=== PATIENT | male | born 1955 | race Caucasian/White ===

== ENCOUNTER 2023-08-27 21:56 | Inpatient (IN) | payer OTHER ==
[2023-08-27] MEDS ORDERED: HYDROCODONE/APAP 10/325 TAB ONE (22:28)
[2023-08-27] MEDS ORDERED: IBUPROFEN 400 MG TAB ONE (22:28)
[2023-08-27] MEDS ORDERED: ONDANSETRON 4 MG (ODT) TAB ONE (22:28)
[2023-08-27 22:53] LABS: Absolute Lymphocytes (CBC) 2.8 K/uL (0.7-4.9); Hematocrit 44.8 % (39.6-49.0); Lymphocytes % 23.5 % (15.3-44.8); MCV 92.8 fL (80-100); MPV 7.8 fL (7.6-11.3); Platelets 215 thou/uL (152-406); RBC Red Blood Cell Count 4.82 M/uL (4.33-5.43)
[2023-08-27 23:02] LABS: Protime INR 1.13
[2023-08-27 23:19] LABS: Albumin 3.5 g/dL (3.4-5.0); Bilirubin Direct 0.3 mg/dL (0-0.2); Bilirubin Indirect, Calculated 0.9 mg/dL (0.2-0.8); Bilirubin Total 1.2 mg/dL (0.2-1.0); Protein, Total 7.7 g/dL (6.4-8.2)
[2023-08-28] MEDS ORDERED: ENOXAPARIN 100 MG/ML SYR SQ ONE ×2 (00:38→08:27)
--- NOTE | 2023-08-28 00:47 | ER ---
Nurse's Notes [facility] Name: Jose De Jesus Ornelas Age: 68 yrs Sex: Male : 1955 Arrival Date: 08/27/2023 Time: 21:56 Bed 8 Private MD: Diagnosis: Right lower extremity deep venous thrombosis, right common femoral vein DVT.;DVT right common femoral, superficial femoral, popliteal, posterior tibial and peroneal veins;Bilateral pulmonary emboli Presentation: 08/27 22:29 Chief complaint: Patient states: Pt c/o right lower leg pain x 2 weeks that got swollen tl4 and significantly more painful today. Coronavirus screen: Vaccine status: Patient reports receiving the 2nd dose of the covid vaccine. Ebola Screen: No symptoms or risks identified at this time. Initial Sepsis Screen: Does the patient meet any 2 criteria? No. Patient's initial sepsis screen is negative. Does the patient have a suspected source of infection? No. Patient's initial sepsis screen is negative. Risk Assessment: Do you want to hurt yourself or someone else? Patient reports no desire to harm self or others. Onset of symptoms was August 27, 2023. 22:29 Method Of Arrival: Wheelchair tl4 22:29 Acuity: HELEN 3 tl4 Triage Assessment: 22:32 General: Appears uncomfortable, Behavior is calm, cooperative. Pain: Complains of pain tl4 in right leg. EENT: No deficits noted. No signs and/or symptoms were reported regarding the EENT system. Neuro: No deficits noted. Cardiovascular: No deficits noted. Respiratory: No deficits noted. GI: No deficits noted. No signs and/or symptoms were reported involving the gastrointestinal system. : No deficits noted. No signs and/or symptoms were reported regarding the genitourinary system. Derm: No deficits noted. No signs and/or symptoms reported regarding the dermatologic system. Historical: - Allergies: 22:31 No Known Allergies; tl4 - PSHx: 22:31 corneal transplant; tl4 - Immunization history:: Adult Immunizations unknown. - Social history:: Smoking status: Patient denies any tobacco usage or history of. - Family history:: not pertinent. Screenin:46 [facility] ED Fall Risk Assessment (Adult) History of falling in the last 3 months, tm6 including since admission No falls in past 3 months (0 pts). Abuse screen: Denies threats or abuse. Denies injuries from another. Nutritional screening: No deficits noted. Tuberculosis screening: No symptoms or risk factors identified. Assessment: 22:46 General: Appears uncomfortable. Pain: Complains of pain in right leg Pain currently is tm6 9 out of 10 on a pain scale. Quality of pain is described as sharp, Pain began 4 hours ago. Neuro: Level of Consciousness is awake, alert, obeys commands, Oriented to person, place, time, situation. Cardiovascular: Capillary refill < 3 seconds Patient's skin is warm and dry. Respiratory: Airway is patent Respiratory effort is even, unlabored, Respiratory pattern is regular, symmetrical. GI: Abdomen is round non-distended. : No signs and/or symptoms were reported regarding the genitourinary system. EENT: No signs and/or symptoms were reported regarding the EENT system. Derm: No signs and/or symptoms reported regarding the dermatologic system. Musculoskeletal: No signs and/or symptoms reported regarding the musculoskeletal system. 23:25 Reassessment: Patient appears in no apparent distress at this time. Patient and/or jw7 family updated on plan of care and expected duration. Pain level reassessed. Patient is alert, oriented x 3, equal unlabored respirations, skin warm/dry/pink. Vital Signs: 22:29 BP 140 / 88; Pulse 84; Resp 18; Temp 98.1(O); Pulse Ox 98% on R/A; Weight 102.06 kg; tl4 Height 5 ft. 10 in. ; Pain 7/10; 23:23 BP 144 / 83; Pulse 91; Resp 21; Pulse Ox 95% on R/A; Pain 0/10; tm6 22:29 Body Mass Index 32.28 (102.06 kg, 177.8 cm) tl4 22:29 Pain Scale: Adult tl4 23:23 Pain Scale: Adult tm6 Christos Coma Score: 22:46 Eye Response: spontaneous(4). Motor Response: obeys commands(6). Verbal Response: tm6 oriented(5). Total: 15. ED Course: 22:05 Patient arrived in ED. gm2 22:11 Aly Joseph MD is Attending Physician. sp4 22:31 Triage completed. tl4 22:32 Arm band placed on Patient placed in an exam room, on a stretcher. tl4 22:33 Patient has correct armband on for positive identification. Placed in gown. Bed in low tl4 position. Call light in reach. Side rails up X 1. Adult w/ patient. Client placed on continuous cardiac and pulse oximetry monitoring. NIBP monitoring applied. electrician assistant on. Door closed. Moved to private room. Warm blanket given. Pillow given. 22:46 Provided Education on: plan of care. tm6 22:46 No provider procedures requiring assistance completed. Missed attempt(s): 20 gauge in tm6 right antecubital area. 22:47 Inserted saline lock: 20 gauge in left antecubital area, using aseptic technique. tm6 23:10 Extremity Venous Uni Ltd In Process Unspecified. EDMS 02 00:45 Saqib Obregon MD is Hospitalizing Provider. sp4 01:11 Extremity Venous Uni Ltd US In Process Unspecified. EDMS 06:48 Patient admitted, IV remains in place. tm6 Administered Medications: 08/27 22:45 Drug: [place] PO 10 mg-325 mg 1 tabs PO once Route: PO; tm6 22:45 Drug: Ondansetron PO 4 mg PO once Route: PO; tm6 22:46 Drug: Ibuprofen PO 800 mg PO once Route: PO; tm6 02 00:42 Drug: Enoxaparin Sub-Q 100 mg Sub-Q once Route: Sub-Q; Site: abdomen; jw7 Medication: 08/27 22:46 VIS not applicable for this client. tm6 Outcome: 08/28 00:47 Decision to Hospitalize by Provider. sp4 00:50 Admitted to ER Hold. Please see [facility] for further documentation. tm6 00:50 Condition: stable 00:50 Instructed on the need for admit, 16:41 Patient left the ED. kc6 Signatures: Dispatcher [employer] EDMI Michelle Boyle RN RN jw7 Janey Camacho RN RN kc6 Aly Joseph MD MD sp4 Deysi Spears [facility] Milton Lion RN RN tm6 LogBrandon keith tl4
--- NOTE | 2023-08-28 00:47 | EDPHYS ---
Physician Documentation [facility] Name: Jose De Jesus Ornelas Age: 68 yrs Sex: Male : 1955 Arrival Date: 08/27/2023 Time: 21:56 Bed 8 Private MD: ED Physician Aly Joseph HPI: 08/27 22:11 This 68 yrs old Male presents to ER via Unassigned with complaints of Leg sp4 Pain, Leg Swelling. 08/28 00:47 Patient is a very pleasant 68-year-old male presents to the emergency room with acute sp4 onset all right lower extremity pain, also right lower extremity swelling starting about noon today. Patient states there was no prior similar episodes. He denied recent surgery, denies recent airplane flight, denies recent extended car ride. Denied history of immobility. . Historical: - Allergies: 08/27 22:31 No Known Allergies; tl4 - PSHx: 22:31 corneal transplant; tl4 - Immunization history:: Adult Immunizations unknown. - Social history:: Smoking status: Patient denies any tobacco usage or history of. - Family history:: not pertinent. ROS: 08/28 00:47 Constitutional: Negative for fever, chills, and weight loss, positive right lower sp4 extremity pain and swelling All other systems are negative, Exam: 00:47 Constitutional: This is a well developed, well nourished patient who is awake, alert, sp4 and in no acute distress. Head/Face: Normocephalic, atraumatic. Eyes: Pupils equal round and reactive to light, extra-ocular motions intact. Lids and lashes normal. Conjunctiva and sclera are not injected. Cornea within normal limits. Periorbital areas with no swelling, redness, or edema. ENT: Nares patent. No nasal discharge, no septal abnormalities noted. Tympanic membranes are normal and external auditory canals are clear. Oropharynx with no redness, swelling, or masses, exudates, or evidence of obstruction, uvula midline. Mucous membranes moist. Neck: Trachea midline, no thyromegaly or masses palpated, and no cervical lymphadenopathy. Supple, full range of motion without nuchal rigidity, or vertebral point tenderness. Chest/axilla: Normal chest wall appearance and motion. Nontender with no deformity. No lesions are appreciated. Cardiovascular: Regular rate and rhythm with a normal S1 and S2. No gallops, murmurs, or rubs. Normal PMI, no JVD. No pulse deficits. Respiratory: Lungs have equal breath sounds bilaterally, clear to auscultation and percussion. No rales, rhonchi or wheezes noted. No increased work of breathing, no retractions or nasal flaring. Abdomen/GI: Soft, non-tender, with normal bowel sounds. No distension or tympany. No guarding or rebound. No evidence of tenderness throughout. Back: No spinal tenderness. No costovertebral tenderness. Skin: Warm, dry with normal turgor. Normal color with no rashes, no lesions, and no evidence of cellulitis. MS/ Extremity: Pulses equal, no cyanosis. Neurovascular intact. Full, normal range of motion. Positive right lower extremity swelling, tenderness, tense swelling of the right calf, Homans' sign Neuro: Awake and alert, GCS 15, oriented to person, place, time, and situation. Cranial nerves II-XII grossly intact. Motor strength 5/5 in all extremities. Sensory grossly intact. Psych: Awake, alert, with orientation to person, place and time. Behavior, mood, and affect are within normal limits Vital Signs: 08/27 22:29 BP 140 / 88; Pulse 84; Resp 18; Temp 98.1(O); Pulse Ox 98% on R/A; Weight 102.06 kg; tl4 Height 5 ft. 10 in. ; Pain 7/10; 23:23 BP 144 / 83; Pulse 91; Resp 21; Pulse Ox 95% on R/A; Pain 0/10; tm6 22:29 Body Mass Index 32.28 (102.06 kg, 177.8 cm) tl4 22:29 Pain Scale: Adult tl4 23:23 Pain Scale: Adult tm6 Christos Coma Score: 22:46 Eye Response: spontaneous(4). Motor Response: obeys commands(6). Verbal Response: tm6 oriented(5). Total: 15. MDM: 22:31 Patient medically screened. sp4 08/28 00:47 Differential diagnosis: contusion, abrasion, tendonitis, DVT. Data reviewed: vital sp4 signs, nurses notes, lab test result(s), radiologic studies, CT scan, ultrasound. Consideration of Admission/Observation Escalation of care including admission/observation considered. ED course: EXAM DESCRIPTION: Extremity Venous Uni Ltd CLINICAL HISTORY: Right leg pain TECHNIQUE: Real-time Duplex ultrasound of right lower extremity veins with 2-D nelson scale, color Doppler flow, and spectral waveform analysis. COMPARISON: None available for comparison. FINDINGS: Right deep veins: Deep venous thrombosis involving the right common femoral, superficial femoral, popliteal, posterior tibial and peroneal veins. Collaterals are seen adjacent to the superficial femoral vein likely sequela from chronic deep venous thrombosis. Right superficial veins: Visualized saphenofemoral junction is patent without thrombus. IMPRESSION: Extensive deep venous thrombosis involving the right common femoral, superficial femoral, popliteal, posterior tibial and peroneal veins. There are collateral venous channels adjacent to the superficial femoral vein likely sequela from chronic deep venous thrombosis.. 00:47 ED course: Patient presents elevated extensive DVT right lower extremity. Will sp4 administer Lovenox. Will request admission for further investigation. Will obtain CT chest PE protocol . 02:05 ED course: CLINICAL HISTORY: DVT in R leg , investigate Left one COMPARISON: None. sp4 TECHNIQUE: US EXTREMITYVEINS UNILATERAL 08/28/2023 12:44 AM ENVIRONMENTAL COORDINATOR FINDINGS: The left common femoral, femoral and popliteal veins are normally compressible with patent flow and augmentation. Visualized left calf veins are patent. IMPRESSION: No DVT in the left leg. . 02:05 ED course: CLINICAL HISTORY: dyspnea, DVT COMPARISON: None. TECHNIQUE: CT sp4 CHESTANGIOGRAPHYWITH IV CONTRAST on 08/28/2023 12:42 AM ENVIRONMENTAL COORDINATOR. MIPS reconstructions were generated. This exam was performed according to our departmental dose-optimization program, which includes automated exposure control, adjustment of the mA and/or kV according to patient size and/or use of iterative reconstruction technique. MIP images were generated. FINDINGS: Thoracic aorta is normal in course and caliber without aneurysm or dissection. Pulmonary arteries are adequately opacified. There are small segmental and subsegmental filling defects within branches of the right upper and right lower lobe pulmonary arteries. There is a moderate left lower lobe pulmonary embolus proximally. There is minimal involvement of the lingular branches proximally. The heart is normal in size. There is no pericardial effusion. Intrathoracic lymph nodes are not enlarged. There is no pleural effusion, pleural thickening or pneumothorax. Central airways are patent. Lungs are clear with no consolidation, mass or interstitial lung disease. In the upper abdomen, there is a large calcified gallstone in the gallbladder. There are no acute osseous findings. No suspicious bony lesions. IMPRESSION: Bilateral pulmonary emboli, larger on the left, with no evidence of right heart strain.. 08/27 22:22 Order name: Basic Metabolic Panel; Complete Time: 00:32 sp4 08/27 22:22 Order name: CBC with Diff; Complete Time: 00:32 sp4 08/27 22:22 Order name: D-Dimer; Complete Time: 00:32 sp4 08/27 22:22 Order name: LFT's; Complete Time: 00:32 sp4 08/27 22:22 Order name: PT-INR; Complete Time: 00:32 sp4 08/28 01:13 Order name: Basic Metabolic Panel EDMS 08/28 01:13 Order name: Basic Metabolic Panel EDMS 08/28 01:13 Order name: CBC with Automated Diff EDMS 08/28 01:13 Order name: CBC with Automated Diff EDMS 08/27 22:21 Order name: Extremity Venous Uni Ltd US sp4 08/28 00:42 Order name: CT Chest For PE Angio sp4 08/28 00:44 Order name: Extremity Venous Uni Ltd US sp4 08/28 12:11 Order name: CT EDMS 08/28 16:13 Order name: CT EDMS 08/27 22:22 Order name: IV Saline Lock; Complete Time: 22:45 sp4 08/27 22:22 Order name: Labs collected and sent; Complete Time: 22:45 sp4 Administered Medications: 08/27 22:45 Drug: [place] PO 10 mg-325 mg 1 tabs PO once Route: PO; tm6 22:45 Drug: Ondansetron PO 4 mg PO once Route: PO; tm6 22:46 Drug: Ibuprofen PO 800 mg PO once Route: PO; tm6 08/28 00:42 Drug: Enoxaparin Sub-Q 100 mg Sub-Q once Route: Sub-Q; Site: abdomen; jw7 Disposition Summary: 08/28/23 00:47 Hospitalization Ordered Notes: Hospitalization Status: Observation sp4 Provider: Saqib Obregon sp4 Condition: Stable sp4 Problem: new sp4 Symptoms: have improved sp4 Bed/Room Type: Standard sp4 Location: [facility] ER HOLD(08/28/23 14:59) kb3 Room Assignment: ERHOLD-(08/28/23 14:59) kb3 Diagnosis - Right lower extremity deep venous thrombosis, right common femoral vein DVT. sp4 - DVT right common femoral, superficial femoral, popliteal, posterior tibial and sp4 peroneal veins - Bilateral pulmonary emboli sp4 Forms: - Medication Reconciliation Form sp4 - SBAR form sp4 - Leadership Thank You Letter sp4 Signatures: Dispatcher [employer] EDMS Abimael Phoenix RN RN ja1 Michelle Boyle RN RN jw7 Esperanza Persaud RN RN kb3 Aly Joseph MD MD sp4 Milton Lion RN RN tm6 Brandon Tobias tl4 Maria Dia pm6 Corrections: (The following items were deleted from the chart) 00:54 00:47 Telemetry/MedSurg (observation) sp4 pm6 00:54 00:47 sp4 pm6 10:42 00:[address] [facility] ER HOLD pm6 ja1 10:42 00:54 ERHOLD- pm6 ja1 11:18 10:42 403 1 ja1 14:59 10:42 Telemetry/MedSurg (observation) ja1 kb3 14:59 11:18 ja1 kb3
--- NOTE | 2023-08-28 01:02 | P.HP ---
Certification for Inpatient Patient admitted to: Inpatient With expected LOS: >2 Midnights Practitioner: I am a practitioner with admitting privileges, knowledge of patient current condition, hospital course, and medical plan of care. Services: Services provided to patient in accordance with Admission requirements found in Title 42 Section 412.3 of the Code of Federal Regulations Patient History Date of Service: 08/28/23 Reason for admission: DVT and PE. History of Present Illness: 68-year-old male patient with no significant medical history who came to the ED with complaint of right leg swelling and pain. He reported that this been going on for the past couple of days. No issues with prior trauma, immobility and shortness of breath. He was worked up with CT of the chest for PE protocol found to have multiple PEs and DVT was found on an ultrasound of the right lower extremity. He had no prior issues with DVTs in the past. He has no personal history of cancer and he reported no recent unintentional weight loss. Review of Systems General: Unremarkable Eyes: Unremarkable ENT: Unremarkable Respiratory: Unremarkable Cardiovascular: Unremarkable Gastrointestinal: Unremarkable Musculoskeletal: Leg Pain Integumentary: Unremarkable Neurological: Unremarkable Lymphatics: Unremarkable Physical Examination - Physical Exam General: Alert, Oriented x3 HEENT: Atraumatic Neck: Supple Respiratory: Normal air movement Cardiovascular: Regular rate/rhythm, Normal S1 S2 Gastrointestinal: Soft and benign Musculoskeletal: No swelling Neurological: Normal speech, Normal strength at 5/5 x4 extr - Studies Laboratory Data (last 24 hrs) 08/27/23 08/27/23 08/27/23 22:42 22:42 22:42 WBC 11.80 H Hgb 15.4 Hct 44.8 Plt Count 215 PT 12.4 INR 1.13 Sodium 136 Potassium 4.0 BUN 20 H Creatinine 1.34 H Glucose 111 H Total Bilirubin 1.2 H AST 18 ALT 33 Alkaline Phosphatase 86 Assessment and Plan - Plan DVT/PE: Patient has multiple PE in the chest and also extensive DVT of the right lower extremity. No significant trigger found. Workup with a CT of the abdomen and pelvis to complete rule out for possible underlying malignancy. We will continue Lovenox at 1 mg/kg body weight every 12 hours. Will consult pulmonary physician for management recommendation. Prophylaxis: On Lovenox for DVT/PE treatment CODE STATUS: Full code Disposition: We will treat his extensive DVT and PE and he will be discharged once is deemed clinically stable and plan of care for outpatient therapy is finalized. - Advance Directives Does patient have a Living Will: No Does patient have a Durable POA for Healthcare: No
[2023-08-28] MEDS ORDERED: ONDANSETRON 4 MG/2 ML VIAL IV PRN (01:06)
[2023-08-28] MEDS ORDERED: ACETAMINOPHEN 325 MG TABLET PO PRN (01:06)
[2023-08-28] MEDS ORDERED: HYDROCODONE/APAP 5/325 MG TAB PO PRN (01:11)
[2023-08-28] MEDS ORDERED: HYDROMORPHONE HCL 0.5 MG/0.5 ML INJ IV PRN (01:11)
[2023-08-28] MEDS: NA CHLORIDE 0.9% 1,000 ML IV SCH (02:00)
[2023-08-28 02:07] VITALS: BMI 32.3
[2023-08-28] MEDS ORDERED: NA CHLORIDE 0.9% 1,000 ML ONE (03:48)
[2023-08-28 04:35] VITALS: TEMP 98.4
[2023-08-28] MEDS: ENOXAPARIN 100 MG/ML SYR SQ SCH (08:30)
[2023-08-28 08:47] VITALS: O2SAT 97
--- NOTE | 2023-08-28 12:10 | RAD REPORT ---
EXAM DESCRIPTION: CT - Chest For Pe Angio - 08/28/2023 7:02 am ADDENDUM #1 Critical findings were discussed with and acknowledged by Dr. Joseph on 08/28/2023 2:01 AM COMMERCIAL DRIVER. Electronically signed by: Dean Melgar MD 08/28/2023 02:10 AM COMMERCIAL DRIVER End of Addendum CLINICAL HISTORY: Dyspnea, DVT COMPARISON: None. TECHNIQUE: CT CHEST ANGIOGRAPHY WITH IV CONTRAST on 08/28/2023 12:42 AM COMMERCIAL DRIVER. MIPS reconstructions were generated. This exam was performed according to our departmental dose-optimization program, which includes autom ated exposure control, adjustment of the mA and/or kV according to patient size and/or use of iterati ve reconstruction technique. MIP images were generated. FINDINGS: Thoracic aorta is normal in course and caliber without aneurysm or dissection. Pulmonary a rteries are adequately opacified. There are small segmental and subsegmental filling defects within b ranches of the right upper and right lower lobe pulmonary arteries. There is a moderate left lower lo be pulmonary embolus proximally. There is minimal involvement of the lingular branches proximally. The heart is normal in size. There is no pericardial effusion. Intrathoracic lymph nodes are not enla rged. There is no pleural effusion, pleural thickening or pneumothorax. Central airways are patent. Lungs a re clear with no consolidation, mass or interstitial lung disease. In the upper abdomen, there is a large calcified gallstone in the gallbladder. There are no acute o sseous findings. No suspicious bony lesions. IMPRESSION: Bilateral pulmonary emboli, larger on the left, with no evidence of right heart strain. Electronically signed by: Dean Melgar MD 08/28/2023 01:55 AM COMMERCIAL DRIVER Due to temporary technical issues with the PACS/Fluency reporting system, reports are being signed by the in house radiologist without review as a courtesy to ensure prompt reporting. The interpreting r adiologist is fully responsible for the content of the report.
--- NOTE | 2023-08-28 12:21 | P.CNS ---
Date of Consult: 08/28/23 Reason for Consult: DVT and pulmonary embolism Chief Complaint: DVT and PE. History of Present Illness: Patient is 68 years of age admitted with swelling of his right leg for the past 2 weeks prior history of pulmonary embolism or DVT and is retired no recent history of any malignancies and is usually very active nose with DVT and pulmonary embolism currently denies any shortness of breath Allergies No Known Allergies Allergy (Unverified 08/28/23 03:46) Home Medications: Apixaban [Eliquis] 5 mg PO BID 90 Days #180 tablet 08/28/23 - Past Medical/Surgical History Past Medical History: Patient denies medical history Past Surgical History: Patient denies surgical history - Social History Place of Residence: Home Review of Systems 10-point ROS is otherwise unremarkable Physical Examination Temp Pulse Resp BP Pulse Ox 98.4 F 67 15 112/59 L 97 08/28/23 04:00 08/28/23 07:36 08/28/23 07:36 08/28/23 07:36 08/28/23 07:36 General: Alert, Oriented x3 Respiratory: Clear to auscultation bilaterally Cardiovascular: No edema, Regular rate/rhythm, Normal S1 S2 Gastrointestinal: Normal bowel sounds, Soft and benign Laboratory Data (last 24 hrs) 08/27/23 08/27/23 08/27/23 22:42 22:42 22:42 WBC 11.80 H Hgb 15.4 Hct 44.8 Plt Count 215 PT 12.4 INR 1.13 Sodium 136 Potassium 4.0 BUN 20 H Creatinine 1.34 H Glucose 111 H Total Bilirubin 1.2 H AST 18 ALT 33 Alkaline Phosphatase 86 - Problems (1) Deep vein thrombosis (DVT) with pulmonary embolism present on admission Current Visit: Yes Status: Acute Plan: Patient is 68 years of age admitted with 2-week history of swelling of his right leg was diagnosed with DVT and pulmonary embolism currently doing well apart from some discomfort in his right leg he denies any shortness of breath hemodynamically stable oxygenation satisfactory room air sats are normal plan to discharge home on Eliquis or Xarelto will need 3 to 6 months of anticoagulation possibly indefinite to 3 months we will plan to do some diagnostic elation studies renal function is mildly abnormal he had no other medical history stable for discharge follow-up with me in 2 weeks
--- NOTE | 2023-08-28 12:26 | P.DS ---
Admission Date: 08/28/23 Discharge Date: 08/28/23 Disposition: ROUTINE DISCHARGE Discharge Condition: GOOD Reason for Admission: DVT and PE. Brief History of Present Illness: 68-year-old male patient with no significant medical history who came to the ED with complaint of right leg swelling and pain. He reported that this been going on for the past couple of days. No issues with prior trauma, immobility and shortness of breath. He was worked up with CT of the chest for PE protocol found to have multiple PEs and DVT was found on an ultrasound of the right lower extremity. He had no prior issues with DVTs in the past. He has no personal history of cancer and he reported no recent unintentional weight loss. Hospital Course: Pt is a 68yo male with no significant past medical history who came to the ED with right leg swelling and pain. He reported that the symptoms started a couple of days before this admission. Pt denied any prior trauma, immobility and shortness of breath. CT of the chest showed Bilateral PE ( L> R) without RV strain. Doppler ultrasound showed RLE DVT. We started therapeutic lovenox and consulted Pulmonology. Pulmonology evaluated pt and cleared him for discharge with Eliquis. Pt was found to have multiple PEs and DVT was found on an ultrasound of the right lower extremity. CT abd/pelvis was negative for any malignancy. Pt was advised to take Eliquis 10mg po BID for 1 week, the switch to Eliquis 5mg po BID for at least 3 - 6 months. Pt was in NAD prior to discharge. Vital Signs/Physical Exam: Temp Pulse Resp BP Pulse Ox 98.4 F 67 15 112/59 L 97 08/28/23 04:00 08/28/23 07:36 08/28/23 07:36 08/28/23 07:36 08/28/23 07:36 Laboratory Data at Discharge: WBC 11.80 thou/uL (4.3-10.9) H 08/27/23 22:42 Hgb 15.4 g/dL (13.6-17.9) 08/27/23 22:42 Hct 44.8 % (39.6-49.0) 08/27/23 22:42 Plt Count 215 thou/uL (152-406) 08/27/23 22:42 PT 12.4 SECONDS (9.5-12.5) 08/27/23 22:42 INR 1.13 08/27/23 22:42 Sodium 136 mEq/L (136-145) 08/27/23 22:42 Potassium 4.0 mEq/L (3.5-5.1) 08/27/23 22:42 BUN 20 mg/dL (7-18) H 08/27/23 22:42 Creatinine 1.34 mg/dL (0.70-1.30) H 08/27/23 22:42 Glucose 111 mg/dL (74-106) H 08/27/23 22:42 Total Bilirubin 1.2 mg/dL (0.2-1.0) H 08/27/23 22:42 AST 18 U/L (15-37) 08/27/23 22:42 ALT 33 U/L (16-61) 08/27/23 22:42 Alkaline Phosphatase 86 U/L (45-117) 08/27/23 22:42 Home Medications: Apixaban [Eliquis] 5 mg PO BID 90 Days #180 tablet 08/28/23 New Medications: Apixaban [Eliquis] 5 mg PO BID 90 Days #180 tablet Physician Discharge Instructions: Continue ad gem activity. Take Eliquis 10mg po BID for 1 week, then switch to Eliquis 5mg po BID for at least 3 - 6 months. Follow up with PCP within 1 week. Diet: AHA Activity: Ad gem Followup: Malachi Hammond MD [ACTIVE - CAN ADMIT] -
--- NOTE | 2023-08-28 12:51 | RAD REPORT ---
EXAM DESCRIPTION: US - Extremity Venous Uni Ltd - 08/28/2023 1:09 am CLINICAL HISTORY: DVT in R leg , investigate Left one COMPARISON: None. TECHNIQUE: US EXTREMITY VEINS UNILATERAL 08/28/2023 12:44 AM NUT AND BOLT ASSEMBLER FINDINGS: The left common femoral, femoral and popliteal veins are normally compressible with patent flow and augmentation. Visualized left calf veins are patent. IMPRESSION: No DVT in the left leg. Electronically signed by: Dean Melgar MD 08/28/2023 01:25 AM NUT AND BOLT ASSEMBLER Due to temporary technical issues with the PACS/Fluency reporting system, reports are being signed by the in house radiologist without review as a courtesy to ensure prompt reporting. The interpreting r adiologist is fully responsible for the content of the report
--- NOTE | 2023-08-28 12:52 | RAD REPORT ---
EXAM DESCRIPTION: US - Extremity Venous Uni Ltd - 08/27/2023 11:08 pm CLINICAL HISTORY: Right leg pain TECHNIQUE: Real-time Duplex ultrasound of right lower extremity veins with 2-D nelson scale, color Dop pler flow, and spectral waveform analysis. COMPARISON: None available for comparison. FINDINGS: Right deep veins: Deep venous thrombosis involving the right common femoral, superficial f emoral, popliteal, posterior tibial and peroneal veins. Collaterals are seen adjacent to the superficial femoral vein likely sequela from chronic deep venous thrombosis. Right superficial veins: Visualized saphenofemoral junction is patent without thrombus. IMPRESSION: Extensive deep venous thrombosis involving the right common femoral, superficial femoral , popliteal, posterior tibial and peroneal veins. There are collateral venous channels adjacent to the superficial femoral vein likely sequela from chr onic deep venous thrombosis. Electronically signed by: Abimael Chamberlain MD 08/27/2023 11:37 PM INSTRUMENTATION AND CONTROLS DESIGNER Due to temporary technical issues with the PACS/Fluency reporting system, reports are being signed by the in house radiologist without review as a courtesy to ensure prompt reporting. The interpreting r adiologist is fully responsible for the content of the report.
[2023-08-28 13:08] VITALS: BP 151/87
--- NOTE | 2023-08-28 16:12 | RAD REPORT ---
EXAM DESCRIPTION: CT - Chest Abdomen Pelvis W Cont - 08/28/2023 1:38 pm CLINICAL HISTORY: eval of extensive dvt/pe to r/o malignancy COMPARISON: Chest For Pe Angio dated 08/28/2023 TECHNIQUE: Thin axial CT images of the chest, abdomen, and pelvis, performed following intravenous a dministration of 100mL Isovue-300. Multiplanar reformats were generated and reviewed. All CT scans are performed using dose optimization technique as appropriate and may include automated exposure control or mA/KV adjustment according to patient size. FINDINGS: The lungs are clear.Bilateral pulmonary emboli, were better assessed on prior CT chest ang iography of the same day.No pleural or pericardial effusion.No intrathoracic adenopathy. The liver, spleen, pancreas, adrenal glands and kidneys are within normal limits. At least a single large cholesterol containing calculus near the gallbladder neck, measuring 4.3 cm. No bowel obstruction, free air, free fluid or abscess. Colonic diverticulosis. Small bilateral inguin al hernias containing fat. No pathologic lymphadenopathy in the abdomen or pelvis. No worrisome osseous finding. IMPRESSION: No acute abnormalities. No suspicious masses or adenopathy in the chest, abdomen, or pel vis. Large cholesterol containing gallstone near the neck measuring 4.3 cm. Colonic diverticulosis. Small bilateral inguinal hernias.
== END 2023-08-28 16:41 | disposition home or self-care (01) | DRG 299 ==
LOC: ER 21:56 → ERHOLD 08-28 01:06 → 4TH 08-28 10:52 → ERHOLD 08-28 10:52
PROVIDERS: ADMIT Internal Medicine Nephrology; ATTEND Hospitalist
DX: I82.411 Acute embolism and thrombosis of right femoral vein (principal); I26.99 Other pulmonary embolism without acute cor pulmonale; I82.431 Acute embolism and thrombosis of right popliteal vein; I82.441 Acute embolism and thrombosis of right tibial vein; I82.451 Acute embolism and thrombosis of right peroneal vein; Z94.7 Corneal transplant status; Z79.01 Long term (current) use of anticoagulants
CPT/HCPCS: 36415; 71260; 71275; 74177; 80048; 80076; 85025; 85379; 85610; 93971; J1650; J7030; Q0162; Q9967

== ENCOUNTER 2024-08-07 20:21 | Inpatient (IN) | payer OTHER ==
[2024-08-07 21:13] LABS: Absolute Basophils 0.1 K/uL (0-0.5); Absolute Eosinophils 0.2 K/uL (0-0.5); Absolute Lymphocytes (CBC) 2.5 K/uL (0.7-4.9); Absolute Monocytes 0.8 K/uL (0.1-1.3); Absolute Neutrophil 6.5 K/uL (1.8-8.0); Basophils % 0.8 % (0-1.3); Hematocrit 46.1 % (39.6-49.0); Hemoglobin 15.7 g/dL (13.6-17.9); Lymphocytes % 24.6 % (15.3-44.8); MCH 31.8 pg (27.0-35.0); MCV 93.5 fL (80-100); MPV 8.4 fL (7.6-11.3); Monocytes % 8.3 % (3.3-12.3); Neutrophils % 64.3 % (41.7-73.7); Platelets 128 thou/uL (152-406); RBC Red Blood Cell Count 4.93 M/uL (4.33-5.43); Red Cell Distribution Width 13.9 % (12.1-15.2)
[2024-08-07 21:15] LABS: PT Prothrombin Time 11.8 SECONDS (9.4-12.5); Protime INR 1.13
[2024-08-07 21:28] LABS: Albumin 3.5 g/dL (3.4-5.0); Albumin/Globulin Ratio 0.9 (1.1-1.8); Anion Gap 6.1 mEq/L (5.0-15.0); Bilirubin Direct 0.4 mg/dL (0-0.2); Bilirubin Indirect, Calculated 0.9 mg/dL (0.2-0.8); Bilirubin Total 1.3 mg/dL (0.2-1.0); Globulin 3.9 g/dL (2.3-3.5); Magnesium 2.4 mg/dL (1.6-2.4); Potassium 4.1 mEq/L (3.5-5.1); Protein, Total 7.4 g/dL (6.4-8.2); Troponin High Sensitivity 52.1 pg/mL (<58.9)
--- NOTE | 2024-08-07 21:28 | RAD REPORT ---
EXAM: Chest Single View HISTORY: CHEST PAIN COMPARISON: 09/18/2013 FINDINGS: LUNGS/PLEURA: The lungs are clear. No pleural effusions or pneumothorax. No pulmonary edema. MEDIASTINUM: The mediastinal silhouette is within normal limits. CARDIAC: The cardiac silhouette is within normal limits. UPPER ABDOMEN: No significant abnormality. BONES: No acute abnormality. LINES/TUBES/OTHER: N/A IMPRESSION: No evidence of acute cardiopulmonary disease.
[2024-08-07 22:42] LABS: C-Reactive Protein 38.4 mg/L (<3.00); Thyroid Stimulating Hormone 1.36 uIU/mL (0.358-3.740)
--- NOTE | 2024-08-07 23:05 | RAD REPORT ---
EXAMINATION: CTA CHEST PE CLINICAL INDICATION: Male, 69 years old. hypoxemia TECHNIQUE: This examination was performed according to an angiographic protocol with 3D post-processi ng. This involves 3D reconstructions, MIPs, volume rendered images and/or shaded surface rendering. One or more of the following dose reduction techniques were used: Automated exposure control, adjustm ent of the mA and/or kV according to patient size, and/or iterative reconstruction. Unless otherwise specified, incidental findings do not require dedicated imaging follow-up. [id number]. COMPARISON: Chest CT 08/28/2023 FINDINGS: LOWER NECK: Visualized thyroid gland and soft tissues are normal. LUNGS AND AIRWAYS: Motion artifact.There is likely some scarring in the right lower lobe anteriorly. No suspicious for nodule. PLEURA: No pleural effusion. No pneumothorax. Hemidiaphragms are normally positioned. MEDIASTINUM AND LYMPH NODES: No mediastinal mass or fluid collection. Normal size mediastinal, hilar, and axillary lymph nodes. Mild distal esophageal thickening. THORACIC AORTA: No thoracic aortic aneurysm. PULMONARY ARTERIES: Caliber is within normal limits. Positive for bilateral pulmonary emboli extendin g from the right and left pulmonary arteries into the lobar, segmental, and subsegmental branches with overall moderate to large clot burden. HEART: Dilated right atrium and ventricle with reflux of contrast into the hepatic veins. Coronary ar terial calcifications are present.No significant pericardial effusion. OSSEOUS STRUCTURES AND CHEST WALL: Multilevel degenerative changes. No acute fracture. UPPER ABDOMEN: No acute abnormalities.Hepatic steatosis. IMPRESSION: Positive for pulmonary embolism with moderate to large clot burden and possible right heart strain. THIS REPORT CONTAINS FINDINGS THAT MAY BE CRITICAL TO PATIENT CARE. The emergent findings were commun icated to Dr. Joseph on 08/07/2024 10:55 PM .
[2024-08-07] MEDS ORDERED: ENOXAPARIN 100 MG/ML SYR SQ ONE (23:08)
--- NOTE | 2024-08-07 23:23 | EDPHYS ---
Physician Documentation [facility] Name: Jose De Jesus Bryant Age: 69 yrs Sex: Male : 1955 Arrival Date: 08/07/2024 Time: 20:21 Bed 3 Private MD: ED Physician Aly Joseph HPI: 08/07 20:25 This 69 yrs old Male presents to ER via Unassigned with complaints of sp4 Breathing Difficulty. 20:39 69-year-old male presents with acute dyspnea on exertion in the last 2 days associated sp4 with orthopnea nonproductive cough, . 08/08 00:28 69 -year-old male with prior history of DVT, presents with acute onset of dyspnea on sp4 exertion associated with orthopnea starting yesterday. Patient reports worsening dyspnea today. On arrival patient was hypoxemic at 83%.. Historical: - Allergies: 08/07 20:35 No Known Allergies; aa5 - PMHx: 20:35 DVT; PE; aa5 - PSHx: 20:35 corneal transplant; aa5 - Immunization history:: Adult Immunizations unknown. - Infectious Disease History:: Denies. - Social history:: Smoking status: Patient denies any tobacco usage or history of. - Family history:: not pertinent. ROS: 08/08 00:28 Constitutional: Negative for fever, chills, and weight loss, positive dyspnea at rest, sp4 positive dyspnea on exertion, positive orthopnea All other systems are negative, Exam: 00:28 Constitutional: This is a well developed, well nourished patient who is awake, alert, sp4 and in no acute distress. Head/Face: Normocephalic, atraumatic. Eyes: Pupils equal round and reactive to light, extra-ocular motions intact. Lids and lashes normal. Conjunctiva and sclera are not injected. Cornea within normal limits. Periorbital areas with no swelling, redness, or edema. ENT: Nares patent. No nasal discharge, no septal abnormalities noted. Tympanic membranes are normal and external auditory canals are clear. Oropharynx with no redness, swelling, or masses, exudates, or evidence of obstruction, uvula midline. Mucous membranes moist. Neck: Trachea midline, no thyromegaly or masses palpated, and no cervical lymphadenopathy. Supple, full range of motion without nuchal rigidity, or vertebral point tenderness. Chest/axilla: Normal chest wall appearance and motion. Nontender with no deformity. No lesions are appreciated. Cardiovascular: Regular rate and rhythm with a normal S1 and S2. No gallops, murmurs, or rubs. Normal PMI, no JVD. No pulse deficits. Respiratory: Lungs have equal breath sounds bilaterally, clear to auscultation and percussion. No rales, rhonchi or wheezes noted. No increased work of breathing, no retractions or nasal flaring. Abdomen/GI: Soft, with normal bowel sounds. No distension or tympany. No guarding or rebound. No evidence of tenderness throughout. Back: No spinal tenderness. No costovertebral tenderness. Skin: Warm, dry with normal turgor. Normal color with no rashes, no lesions, and no evidence of cellulitis. MS/ Extremity: Pulses equal, no cyanosis. Neurovascular intact. Full, normal range of motion. Neuro: Awake and alert, GCS 15, oriented to person, place, time, and situation. Cranial nerves II-XII grossly intact. Motor strength 5/5 in all extremities. Sensory grossly intact. Psych: Awake, alert, with orientation to person, place and time. Behavior, mood, and affect are within normal limits 00:28 ECG was reviewed by the Attending Physician. EKG at 2034 normal sinus rhythm otherwise unremarkable Vital Signs: 08/07 20:23 BP 142 / 88; Pulse 97; Resp 20 S; Temp 98(TE); Pulse Ox 83% on R/A; Weight 99.79 kg aa5 (R); Height 5 ft. 10 in. (R); 21:04 BP 112 / 80; Pulse 95; Resp 22; Temp 98; Pulse Ox 93% on 5 lpm NC; Pain 0/10; bm8 21:31 BP 134 / 77; Pulse 89; Resp 20; Temp 98; Pulse Ox 97% on 5 lpm NC; Pain 0/10; bm8 23:48 BP 121 / 92; Pulse 93; Resp 22; Temp 98; Pulse Ox 95% ; Pain 0/10; bm8 08/08 01:03 BP 125 / 86; Pulse 91; Resp 25; Temp 98; Pulse Ox 94% on 5 lpm NC; Pain 0/10; bm8 08/07 20:23 Body Mass Index 31.57 (99.79 kg, 177.8 cm) aa5 21:04 Pain Scale: Adult bm8 21:31 Pain Scale: Adult bm8 23:48 Pain Scale: Adult bm8 08/08 01:03 Pain Scale: Adult bm8 [place] Coma Score: 08/07 21:04 Eye Response: spontaneous(4). Motor Response: obeys commands(6). Verbal Response: bm8 oriented(5). Total: 15. 21:31 Eye Response: spontaneous(4). Motor Response: obeys commands(6). Verbal Response: bm8 oriented(5). Total: 15. 23:48 Eye Response: spontaneous(4). Motor Response: obeys commands(6). Verbal Response: bm8 oriented(5). Total: 15. 08/08 00:28 Eye Response: spontaneous(4). Motor Response: obeys commands(6). Verbal Response: sp4 oriented(5). Total: 15. 01:03 Eye Response: spontaneous(4). Motor Response: obeys commands(6). Verbal Response: bm8 oriented(5). Total: 15. MDM: 08/07 20:26 Medical Screening Exam initiated sp4 23:10 ED course: Name: GILMER BRYANT Acct Number: [id number] :1955 Age:69 sp4 Sex:M Ord Phys: Aly Joseph MD Unit Number: [id number] [facility]: India Lamb MD Status: REG ER Exam Date: 08/07/24 EXAMINATION: CTA CHEST PE CLINICAL INDICATION: Male, 69 years old. hypoxemia TECHNIQUE: This examination was performed according to an angiographic protocol with 3D postprocessing. This involves 3D reconstructions, MIPs, volume rendered images and/or shaded surface rendering. One or more of the following dose reduction techniques were used: Automated exposure control, adjustment of the mA and/or kV according to patient size, and/or iterative reconstruction. Unless otherwise specified, incidental findings do not require dedicated imaging follow-up. [id number]. COMPARISON: Chest CT 08/28/2023 FINDINGS: LOWER NECK: Visualized thyroid gland and soft tissues are normal. LUNGS AND AIRWAYS: Motion artifact.There is likely some scarring in the right lower lobe anteriorly. No suspicious for nodule. PLEURA: No pleural effusion. No pneumothorax. Hemidiaphragms are normally positioned. MEDIASTINUM AND LYMPH NODES: No mediastinal mass or fluid collection. Normal size mediastinal, hilar, and axillary lymph nodes. Mild distal esophageal thickening. THORACIC AORTA: No thoracic aortic aneurysm. PULMONARYARTERIES: Caliber is within normal limits. Positive for bilateral pulmonary emboli extending from the right and left pulmonary arteries into the lobar, segmental, and subsegmental bra nches with overall moderate to large clot burden. HEART: Dilated right atrium and ventricle with reflux of contrast into the hepatic veins. Coronary arterial calcifications are present.No significant pericardial effusion. OSSEOUS STRUCTURES AND CHEST WALL: Multilevel degenerative changes. No acute fracture. UPPER ABDOMEN: No acute abnormalities.Hepatic steatosis. IMPRESSION: Positive for pulmonary embolism with moderate to large clot burden and possible right heart strain. THIS REPORT CONTAINS FINDINGS THAT MAYBE CRITICAL TO PATIENT CARE. The emergent findings were communicated to Dr. Joseph on 08/07/2024 10:55 PM . . 23:12 ED course: EXAM: Chest Single View HISTORY: CHEST PAIN COMPARISON: 09/18/2013 FINDINGS: sp4 LUNGS/PLEURA: The lungs are clear. No pleural effusions or pneumothorax. No pulmonary edema. MEDIASTINUM: The mediastinal silhouette is within normal limits. CARDIAC: The cardiac silhouette is within normal limits. UPPER ABDOMEN: No significant abnormality. BONES: No acute abnormality. LINES/TUBES/OTHER: N/A IMPRESSION: No evidence of acute cardiopulmonary disease. . 08/08 00:28 ED course: EXAM DESCRIPTION: Extrem Venous W Compress Jose CLINICAL HISTORY: rule out sp4 DVT COMPARISON: None. TECHNIQUE: Grayscale, color Doppler, and spectral Doppler imaging of the bilateral lower extremity venous system. FINDINGS: Normal compressibility and flow identified in the bilateral common femoral, superficial femoral, popliteal, and visualized calf veins. No echogenic thrombus identified. No soft tissue abnormalities. Respiratory phasicity in the common femoral veins. IMPRESSION: No evidence of lower extremity DVT. Electronically signed by: Camilo Zavaleta DO 08/08/2024 12:15 AM. 00:34 Differential diagnosis: Anxiety Reaction asthma, Bronchitis CHF exacerbation, Chronic sp4 Obstructive Pulmonary Disease pulmonary edema, Pulmonary Embolism. Data reviewed: vital signs, nurses notes, old medical records, lab test result(s), EKG, radiologic studies, CT scan, ultrasound. ED course: Patient was requested to be admitted to ICU for further management. 00:36 ED course: Patient remains hemodynamically stable. [facility] 08/07 20:26 Order name: Basic Metabolic Panel; Complete Time: 23:03 [facility] 08/07 20:26 Order name: CBC with Diff; Complete Time: 22:18 4 08/07 20:26 Order name: LFT's; Complete Time: 23:03 [facility] 08/07 20:26 Order name: Magnesium; Complete Time: 23:03 [facility] 08/07 20:26 Order name: NT PRO-BNP; Complete Time: 23:03 4 08/07 20:26 Order name: PT-INR; Complete Time: 22:18 [facility] 08/07 20:26 Order name: Troponin HS; Complete Time: 23:03 [facility] 08/07 20:26 Order name: Influenza Screen (a \T\ B); Complete Time: 22:18 4 08/07 22:25 Order name: C-Reactive Protein; Complete Time: 23:03 EDMS 08/07 22:25 Order name: T4 Free; Complete Time: 23:03 EDMS 08/07 22:25 Order name: Thyroid Stimulating Hormone; Complete Time: 23:03 EDMS 08/07 23:51 Order name: Lactate w/ 2H reflex if indic.; Complete Time: 06:52 EDMS 08/07 23:51 Order name: Magnesium; Complete Time: 06:52 EDMS 08/07 23:51 Order name: NT PRO-BNP; Complete Time: 06:52 EDMS 08/07 23:51 Order name: Phosphorus; Complete Time: 06:52 EDMS 08/07 23:51 Order name: Basic Metabolic Panel EDMS 08/07 23:51 Order name: Basic Metabolic Panel; Complete Time: 06:52 EDMS 08/07 23:51 Order name: CBC with Automated Diff EDMS 08/07 23:51 Order name: CBC with Automated Diff; Complete Time: 06:52 EDMS 08/08 08:25 Order name: Glucose, Ancillary Testing; Complete Time: 09:18 EDMS 08/07 20:26 Order name: XRAY Chest (1 view); Complete Time: 22:18 sp4 08/07 22:18 Order name: CT Chest For PE Angio; Complete Time: 01:19 sp4 08/07 22:21 Order name: Extrem Venous W Compression Jose US; Complete Time: 09:18 sp4 08/08 00:01 Order name: Echo with Doppler EDMS 08/07 20:26 Order name: EKG; Complete Time: 20:26 sp4 08/07 20:26 Order name: Cardiac monitoring; Complete Time: 21: sp4 08/07 20:26 Order name: EKG - Nurse/Tech; Complete Time: 21: sp4 08/07 20:26 Order name: IV Saline Lock; Complete Time: : sp4 08/07 20:26 Order name: Labs collected and sent; Complete Time: 21: sp4 08/07 20:26 Order name: O2 Per Protocol; Complete Time: 21: sp4 08/07 20:26 Order name: O2 Sat Monitoring; Complete Time: : sp4 EC/15 20:35 Rate is 95 beats/min. Rhythm is regular, Normal Sinus Rhythm. QRS [place] is Normal. RI sp4 interval is normal. QRS interval is normal. QT interval is normal. No Q waves. T waves are Normal. No ST changes noted. Clinical impression: No evidence of ischemia. Interpreted by me. Reviewed by me. Administered Medications: 23:37 Drug: Enoxaparin Sub-Q 100 mg Sub-Q once Route: Sub-Q; Site: right lower abdomen; dd2 08/08 01:04 Follow up: Response: No adverse reaction bm8 Disposition: 08/07 23:22 Critical Care:. sp4 Disposition Summary: 08/07/24 23:22 Hospitalization Ordered Notes: Hospitalization Status: Inpatient Admission sp4 Provider: Prince Kali spDevorah Condition: Fair sp4 Problem: new sp4 Symptoms: have improved sp4 Bed/Room Type: Standard sp4 Location: Telemetry/MedSurg (Inpatient)(08/08/24 11:00) [facility] Room Assignment: 215(08/08/24 11:00) esha Diagnosis - Bilateral pulmonary emboli, right heart strain, acute DVT, Hypoxemia sp4 Forms: - Medication Reconciliation Form sp4 - SBAR form sp4 - Leadership Thank You Letter sp4 Critical care time excluding procedures: 23:22 Critical care time: Bedside Care: 36 minutes, Consultation: 12 minutes, Family sp4 Intervention: 12 minutes. Total time: 60 minutes Signatures: Dispatcher [employer] EDZeferino Vaughan MD MD cha Calderon, Audri, RN RN aa5 Abimael Phoenix RN RN ja1 Dulce Fierro RN RN vc1 Aly Joseph MD MD sp4 LAUREN JEFFERSON RN RN dd2 Vito Smith RN bm8 Corrections: (The following items were deleted from the chart) 20:27 20:27 Influenza Screen (A \T\ B)+BA.LAB.BRZ ordered. EDMS EDMS 22:25 20:39 C-REACTIVE PROTEIN+C.LAB.BRZ ordered. EDMS EDMS 22:25 20:39 THYROID STIMULAT HORMONE+C.LAB.BRZ ordered. EDMS EDMS 22:25 20:39 T4 FREE+C.LAB.BRZ ordered. EDMS EDMS 08/08 01:12 08/07 23:22 Intensive Care Unit sp4 vc1 08/08 01:12 08/07 23:22 sp4 vc1 08/08 11:00 01:12 [facility] ER HOLD vc1 ja1 11:00 01:12 ERHOLD- vc1 ja
--- NOTE | 2024-08-07 23:23 | ER ---
Nurse's Notes [facility] Name: Jose De Jesus Ornelas Age: 69 yrs Sex: Male : 1955 Arrival Date: 08/07/2024 Time: 20:21 Bed 3 Private MD: Diagnosis: Bilateral pulmonary emboli, right heart strain, acute DVT, Hypoxemia Presentation: 08/07 20:23 Chief complaint: Patient states: SOB on exertion x 2-3 days, pt also reports cough, aa5 reports hx of DVT and PE. SOB was noted upon transfer from wheelchair to bed. 20:23 Coronavirus screen: shortness of breath. Ebola Screen: Patient denies travel to an [facility]-affected area in the 21 days before illness onset. Initial Sepsis Screen: Does the patient meet any 2 criteria? HR > 90 bpm. Does the patient have a suspected source of infection? No. Patient's initial sepsis screen is negative. Risk Assessment: Do you want to hurt yourself or someone else? Patient reports no desire to harm self or others. Onset of symptoms was July 2024. 20:23 Method Of Arrival: Wheelchair aa 20:23 Acuity: HELEN 2 aa5 Triage Assessment: 08/08 01:26 Respiratory: Onset: The symptoms/episode began/occurred yesterday. bm8 Historical: - Allergies: 08/07 20:35 No Known Allergies; aa5 - PMHx: 20:35 DVT; PE; aa5 - PSHx: 20:35 corneal transplant; aa5 - Immunization history:: Adult Immunizations unknown. - Infectious Disease History:: Denies. - Social history:: Smoking status: Patient denies any tobacco usage or history of. - Family history:: not pertinent. Screenin:04 [facility] ED Fall Risk Assessment (Adult) History of falling in the last 3 months, bm8 including since admission No falls in past 3 months (0 pts) Confusion or Disorientation No (0 pts) Intoxicated or Sedated No (0 pts) Impaired Gait No (0 pts) Mobility Assist Device Used No (0 pt) Altered Elimination No (0 pt) Score/Fall Risk Level 0 - 2 = Low Risk Oriented to surroundings, Maintained a safe environment, Educated pt \T\ family on fall prevention, incl call for assistance when getting out of bed, Assessed \T\ reinforced patient's understanding of fall precautions, Hourly rounding (assess needs \T\ fall precautionary measures) done, Used ambulatory aids as needed (educated on \T\ assisted with), Used gait belt as appropriate. Abuse screen: Denies threats or abuse. Nutritional screening: No deficits noted. Tuberculosis screening: No symptoms or risk factors identified. Assessment: 21:04 Reassessment: Patient appears in no apparent distress at this time. Patient and/or bm8 family updated on plan of care and expected duration. Pain level reassessed. Patient is alert, oriented x 3, equal unlabored respirations, skin warm/dry/pink. Patient states feeling better. General: Appears in no apparent distress. comfortable, Behavior is calm, cooperative, appropriate for age. Pain: Denies pain. Neuro: No deficits noted. Level of Consciousness is awake, alert, obeys commands, Oriented to person, place, time, situation, Appropriate for age. Cardiovascular: Reports shortness of breath, Denies chest pain, Heart tones S1 S2 present Capillary refill < 3 seconds in bilateral fingers Patient's skin is warm and dry. Rhythm is sinus rhythm. Respiratory: Reports shortness of breath at rest on exertion labored breathing Airway is patent Respiratory effort is even, labored, Respiratory pattern is regular, symmetrical, Breath sounds are clear bilaterally. the patient has severe shortness of breath. GI: No signs and/or symptoms were reported involving the gastrointestinal system. : No signs and/or symptoms were reported regarding the genitourinary system. EENT: No signs and/or symptoms were reported regarding the EENT system. Derm: No signs and/or symptoms reported regarding the dermatologic system. Musculoskeletal: No signs and/or symptoms reported regarding the musculoskeletal system. 21:31 Reassessment: Patient appears in no apparent distress at this time. No changes from bm8 previously documented assessment. Patient and/or family updated on plan of care and expected duration. Pain level reassessed. Patient is alert, oriented x 3, equal unlabored respirations, skin warm/dry/pink. pt appears more relaxed and breathing less deeply after being placed on O2. 23:48 Reassessment: Patient appears in no apparent distress at this time. Patient and/or bm8 family updated on plan of care and expected duration. Pain level reassessed. Patient is alert, oriented x 3, equal unlabored respirations, skin warm/dry/pink. Patient denies pain at this time. Patient states feeling better. 08/08 01:03 Reassessment: Patient appears in no apparent distress at this time. No changes from bm8 previously documented assessment. Patient and/or family updated on plan of care and expected duration. Pain level reassessed. Patient is alert, oriented x 3, equal unlabored respirations, skin warm/dry/pink. Patient denies pain at this time. Vital Signs: 08/07 20:23 BP 142 / 88; Pulse 97; Resp 20 S; Temp 98(TE); Pulse Ox 83% on R/A; Weight 99.79 kg aa5 (R); Height 5 ft. 10 in. (R); 21:04 BP 112 / 80; Pulse 95; Resp 22; Temp 98; Pulse Ox 93% on 5 lpm NC; Pain 0/10; bm8 21:31 BP 134 / 77; Pulse 89; Resp 20; Temp 98; Pulse Ox 97% on 5 lpm NC; Pain 0/10; bm8 23:48 BP 121 / 92; Pulse 93; Resp 22; Temp 98; Pulse Ox 95% ; Pain 0/10; bm8 08/08 01:03 BP 125 / 86; Pulse 91; Resp 25; Temp 98; Pulse Ox 94% on 5 lpm NC; Pain 0/10; bm8 08/07 20:23 Body Mass Index 31.57 (99.79 kg, 177.8 cm) aa5 21:04 Pain Scale: Adult bm8 21:31 Pain Scale: Adult bm8 23:48 Pain Scale: Adult bm8 08/08 01:03 Pain Scale: Adult bm8 Christos Coma Score: 08/07 21:04 Eye Response: spontaneous(4). Motor Response: obeys commands(6). Verbal Response: bm8 oriented(5). Total: 15. 21:31 Eye Response: spontaneous(4). Motor Response: obeys commands(6). Verbal Response: bm8 oriented(5). Total: 15. 23:48 Eye Response: spontaneous(4). Motor Response: obeys commands(6). Verbal Response: bm8 oriented(5). Total: 15. 08/08 00:28 Eye Response: spontaneous(4). Motor Response: obeys commands(6). Verbal Response: sp4 oriented(5). Total: 15. 01:03 Eye Response: spontaneous(4). Motor Response: obeys commands(6). Verbal Response: bm8 oriented(5). Total: 15. ED Course: 08/07 20:22 Patient arrived in ED. jj6 20:23 Arm band placed on. aa5 20:25 Aly Joseph MD is Attending Physician. sp4 20:30 Vito Smith, RN is Primary Nurse. bm8 20:35 Triage completed. aa5 21:04 Patient has correct armband on for positive identification. Placed in gown. Bed in low bm8 position. Call light in reach. Side rails up X2. Adult w/ patient. Provided Education on: need for admission. Client placed on continuous cardiac and pulse oximetry monitoring. NIBP monitoring applied. library monitor on. Pulse ox on. NIBP on. Door closed. Warm blanket given. Pillow given. Verbal reassurance given. Head of bed elevated. 21:04 No provider procedures requiring assistance completed. Initial lab(s) drawn, by me, bm8 sent to lab. Flu and/or RSV swab sent to lab. Inserted saline lock: 18 gauge in right antecubital area, using aseptic technique. ,using aseptic technique. via ultrasound Blood collected. Flushed with 10 mL NS. Oxygen administration via nasal cannula \T\ 5L/min Response to oxygen therapy: symptoms improved. 21:17 XRAY Chest (1 view) In Process Unspecified. EDMS 22:37 CT Chest For PE Angio In Process Unspecified. EDMS 23:21 Prince Bass MD is Hospitalizing Provider. sp4 23:38 Extrem Venous W Compression Jose US In Process Unspecified. EDMS 08/08 01:26 Patient admitted, IV remains in place. bm8 Administered Medications: 08/07 23:37 Drug: Enoxaparin Sub-Q 100 mg Sub-Q once Route: Sub-Q; Site: right lower abdomen; dd2 08/08 01:04 Follow up: Response: No adverse reaction bm8 Medication: 08/07 21:04 VIS not applicable for this client. bm8 Outcome: 23:22 Decision to Hospitalize by Provider. sp4 08/08 01:25 Admitted to ER Hold. Please see [facility] for further documentation. bm8 Condition: stable Instructed on the need for admit, Demonstrated understanding of follow-up care, medications, 12:02 Patient left the ED. rs5 Signatures: Dispatcher [employer] EDMS Elmira Hector, RN RN aa5 Mihaela Cordero Ricky, RN RN rs5 Aly Joseph MD MD sp4 Vito Smith RN RN bm8 LAUREN JEFFERSON RN RN dd2
[2024-08-07] MEDS ORDERED: ALBUTEROL 2.5 MG/3 ML NEB SOL NEB PRN (23:46)
[2024-08-07] MEDS ORDERED: IPRATROPIUM BROM 0.5MG/2.5ML NEB PRN (23:46)
[2024-08-07] MEDS ORDERED: ONDANSETRON 4 MG/2 ML VIAL IV PRN (23:46)
[2024-08-07] MEDS ORDERED: ACETAMINOPHEN 500 MG TAB PO PRN (23:46)
[2024-08-07] MEDS ORDERED: SODIUM CHLORIDE 0.9% 10ML INJ IV PRN (23:58)
--- NOTE | 2024-08-07 23:58 | P.HP ---
Certification for Inpatient Patient admitted to: Inpatient With expected LOS: >2 Midnights Practitioner: I am a practitioner with admitting privileges, knowledge of patient current condition, hospital course, and medical plan of care. Services: Services provided to patient in accordance with Admission requirements found in Title 42 Section 412.3 of the Code of Federal Regulations Patient History Date of Service: 08/07/24 Reason for admission: Shortness of breath History of Present Illness: Patient is a 69-year-old male with a past medical history of DVT and PE diagnosed in August 2023. He was treated in this hospital and was discharged with a 3-month course of Eliquis. After 3 months, patient stopped taking his Eliquis reportedly due to psychosomatic side effects. He cleared this with pulmonary, Dr. Coreas. He returns now in the hospital complaining of pleuritic chest pain associated with shortness of breath and productive cough. Patient denies fever or chills. His symptoms have been ongoing for the past few days. Workup in the ER included a CT angio of the chest which revealed pulmonary embolism. He has moderate to large clot burden and possible right heart strain. Patient is being admitted to the ICU for hemodynamic monitoring due to concern for submassive PE. Allergies No Known Allergies Allergy (Unverified 08/28/23 03:46) Home Medications: Apixaban [Eliquis] 5 mg PO BID 90 Days #180 tablet 08/28/23 Physical Examination - Physical Exam General: In no apparent distress HEENT: Atraumatic, Normocephalic Respiratory: Clear to auscultation bilaterally, Normal air movement Cardiovascular: No edema, Normal pulses, Regular rate/rhythm, Normal S1 S2 Neurological: Normal speech - Studies Laboratory Data (last 24 hrs) 08/07/24 08/07/24 08/07/24 20:56 20:56 20:56 WBC 10.10 Hgb 15.7 Hct 46.1 Plt Count 128 L PT 11.8 INR 1.13 Sodium 137 Potassium 4.1 BUN 17 Creatinine 1.28 Glucose 161 H Magnesium 2.4 Total Bilirubin 1.3 H AST 22 ALT 44 Alkaline Phosphatase 69 Microbiology Data (last 24 hrs): 08/07/24 20:56 Nasopharnyx Influenza Type A Antigen Screen - Final 08/07/24 20:56 Nasopharnyx Influenza Type B Antigen Screen - Final Assessment and Plan - Problems (Diagnosis) (1) Bilateral pulmonary embolism Current Visit: Yes Status: Acute - Plan Assessment Patient is a 69-year-old male with a past medical history of DVT/PE previously treated with a 3-month course of Eliquis. He now returns the hosp [facility] almost a year later with another episode of pulmonary embolism. CT angio of the chest revealed bilateral pulmonary emboli extending from the right and left pulmonary arteries into the lobar, segmental, and subsegmental branches with overall moderate to large clot burden. Patient SBP is 120 mmHg. His mental status is at baseline. He is on supplemental oxygen. Bilateral pulmonary embolism with large clot burden Acute hypoxemic respiratory failure History of DVT and PE Plan: Will admit to ICU for hemodynamic monitoring due to concern for submassive PE Patient received therapeutic Lovenox in the ER Will keep on full dose Lovenox 1 mg/kg every 12 hours GI prophylaxis 2D echo to assess clot burden NS infusion ER has reached out to pulmonary medicine. Patient is full code - Advance Directives Does patient have a Living Will: No Does patient have a Durable POA for Healthcare: No
--- NOTE | 2024-08-08 00:20 | RAD REPORT ---
ADDENDUM #1 Addendum begins: Dictation error with approval rather than draft status. Please disregard initial dictation. Appropriate dictation as below. EXAM DESCRIPTION: Extrem Venous W Compress Jose CLINICAL HISTORY: rule out DVT COMPARISON: None. TECHNIQUE: Grayscale, color Doppler, and spectral Doppler imaging of the bilateral lower extremity ve nous system. FINDINGS: Echogenic thrombus identified in the left popliteal vein with incomplete compressibility. Peripheral echogenic thrombus identified in the right common femoral, superficial femoral, and poplit eal veins with incomplete compressibility. Remaining deep veins of the lower extremities compressible. IMPRESSION: 1. Nonocclusive possibly chronic DVT identified in the right common femoral, superficial femoral, a nd popliteal veins. 2. Nonocclusive age-indeterminate DVT in the left popliteal vein. Electronically signed by: Camilo Zavaleta DO 08/08/2024 12:35 AM [facility] Workstation: [id number] End of Addendum EXAM DESCRIPTION: Extrem Venous W Compress Jose CLINICAL HISTORY: rule out DVT COMPARISON: None. TECHNIQUE: Grayscale, color Doppler, and spectral Doppler imaging of the bilateral lower extremity ve nous system. FINDINGS: Normal compressibility and flow identified in the bilateral common femoral, superficial fem oral, popliteal, and visualized calf veins. No echogenic thrombus identified. No soft tissue abnormalities. Respiratory phasicity in the common femoral veins. IMPRESSION: No evidence of lower extremity DVT. Electronically signed by: Camilo Zavaleta DO 08/08/2024 12:15 AM [facility] [id number] Due to temporary technical issues with the PACS/[employer] medical reporting system, reports are being signed by the in-house radiologist without review as a courtesy to ensure prompt reporting the interpreting radiologist is fully responsible for the content of the report. Transcribed Date/Time: 08/08/2024 12:39 AM
[2024-08-08] MEDS: PANTOPRAZOLE 40 MG INJ IVP SCH (02:45)
[2024-08-08] MEDS: NA CHLORIDE 0.9% 1,000 ML IV SCH (02:45)
[2024-08-08] MEDS ORDERED: PANTOPRAZOLE 40 MG INJ ONE ×2 (02:46→08:06)
[2024-08-08] MEDS ORDERED: NA CHLORIDE 0.9% 1,000 ML ONE (02:46)
[2024-08-08 05:52] LABS: Absolute Basophils 0.1 K/uL (0-0.5); Absolute Eosinophils 0.2 K/uL (0-0.5); Absolute Lymphocytes (CBC) 3.1 K/uL (0.7-4.9); Absolute Neutrophil 7.4 K/uL (1.8-8.0); Basophils % 0.5 % (0-1.3); Eosinophils % 1.5 % (0-4.4); Hematocrit 42.9 % (39.6-49.0); Hemoglobin 14.8 g/dL (13.6-17.9); Lymphocytes % 26.5 % (15.3-44.8); MCH 31.9 pg (27.0-35.0); MCHC 34.4 g/dL (32.0-36.0); MCV 92.6 fL (80-100); MPV 8.8 fL (7.6-11.3); Monocytes % 8.4 % (3.3-12.3); Neutrophils % 63.1 % (41.7-73.7); Platelets 118 thou/uL (152-406); RBC Red Blood Cell Count 4.64 M/uL (4.33-5.43); Red Cell Distribution Width 13.9 % (12.1-15.2)
[2024-08-08 06:06] LABS: Anion Gap 10.9 mEq/L (5.0-15.0); Potassium 3.9 mEq/L (3.5-5.1)
[2024-08-08 06:10] LABS: Magnesium 2.2 mg/dL (1.6-2.4); Phosphorus 3.7 mg/dL (2.5-4.9)
[2024-08-08] MEDS ORDERED: ENOXAPARIN 100 MG/ML SYR SQ ONE (08:06)
[2024-08-08] MEDS: ENOXAPARIN 100 MG/ML SYR SQ SCH (08:16)
--- NOTE | 2024-08-08 11:44 | EKG ---
Test Date: 2024-08-07 Test Time: 20:35:46 [employer]: MICHAEL MEASUREMENT RESULTS: Intervals: Rate: 95 HI: 172 QRSD: 88 QT: 354 QTc: 444 [place]: P: 44 HI: 172 QRS: 69 T: 24 INTERPRETIVE STATEMENTS: Normal sinus rhythm Nonspecific ST abnormality Abnormal ECG Compared to ECG 10/06/1996 12:17:00 ST (T wave) deviation now present Electronically Signed On 08-08-24 11:43:43 STRINGER MACHINE TENDER by Richmond Louie
--- NOTE | 2024-08-08 12:36 | P.CNS ---
Date of Consult: 08/08/24 Reason for Consult: Pulmonary embolism Chief Complaint: Shortness of breath History of Present Illness: Patient is 69 years of age with a history of pulmonary embolism Eliquis was DC'd due to side effects he was on aspirin apparently last Monday started co mplaining of worsening dyspnea admitted from the emergency room with bilateral recurrent pulmonary embolism he is currently stable doing better Allergies No Known Allergies Allergy (Unverified 08/28/23 03:46) Home Medications: Cetirizine HCl [Zyrtec] 10 mg PO DAILY 08/08/24 - Past Medical/Surgical History -: Pulmonary embolism Past Surgical History: Patient denies surgical history Review of Systems 10-point ROS is otherwise unremarkable Physical Examination Temp Pulse Resp BP Pulse Ox 98.0 F 88 17 130/72 99 08/08/24 09:24 08/08/24 09:24 08/08/24 09:24 08/08/24 09:24 08/08/24 09:24 General: Alert, Oriented x3 Respiratory: Clear to auscultation bilaterally Cardiovascular: No edema, Regular rate/rhythm, Normal S1 S2 Gastrointestinal: Normal bowel sounds, Soft and benign Laboratory Data (last 24 hrs) 08/07/24 08/07/24 08/07/24 20:56 20:56 20:56 WBC 10.10 Hgb 15.7 Hct 46.1 Plt Count 128 L PT 11.8 INR 1.13 Sodium 137 Potassium 4.1 BUN 17 Creatinine 1.28 Glucose 161 H Magnesium 2.4 Total Bilirubin 1.3 H AST 22 ALT 44 Alkaline Phosphatase 69 - Problems (1) Bilateral pulmonary embolism Current Visit: Yes Status: Acute Plan: Patient is 69 years of age admitted with recurrent thromboembolism previously Eliquis was DC'd as it causes some neuropsychiatric effects as per patient at this time will start patient on Xarelto 20 mg once a day follow the protocol for pulmonary embolism he is currently stable we will check him off oxygen hemodynamically stable I have advised him that he will need to stay on lifelong anticoagulation labs chemistries reviewed ambulate possible discharge a.m. CT scan labs all reviewed
[2024-08-08] MEDS: FLU (Fluarix Triv) TS24-25(6MOS UP)/PF 45 MCG/0.5 ML Syringe IM ONE (14:00)
--- NOTE | 2024-08-08 15:54 | P.PN ---
Subjective Date of Service: 08/08/24 Chief Complaint: Shortness of breath Patient reports significant improvement in his shortness of breath after he was put on oxygen. He is currently requiring about 4 L of oxygen by nasal cannula. He denies any chest pain. His blood pressure has been stable. Physical Examination - Vital Signs Temperature: 97.9 F Blood Pressure: 138/73 Pulse: 88 Respirations: 93 Pulse Ox (%): 93 - Studies Laboratory Data (last 24 hrs) 08/07/24 08/07/24 08/07/24 20:56 20:56 20:56 WBC 10.10 Hgb 15.7 Hct 46.1 Plt Count 128 L PT 11.8 INR 1.13 Sodium 137 Potassium 4.1 BUN 17 Creatinine 1.28 Glucose 161 H Magnesium 2.4 Total Bilirubin 1.3 H AST 22 ALT 44 Alkaline Phosphatase 69 Microbiology Data (last 24 hrs): 08/07/24 20:56 Nasopharnyx Influenza Type A Antigen Screen - Final 08/07/24 20:56 Nasopharnyx Influenza Type B Antigen Screen - Final Assessment And Plan - Plan Physical examination General: Alert and oriented x3, NAD, obese HEENT: Conjunctiva not pale, anicteric sclera Neck: Supple, no elevated JVD Heart: Heart sounds 1 and 2 normal, regular rhythm, normal rate, no pedal edema Lungs: Clear to auscultation bilaterally, adequate breath sounds bilaterally, no rhonchi or crackles. Abdomen: Soft, nondistended, nontender, normal bowel sounds. Extremities: No tenderness, no deformity Skin: Normal skin turgor, no rash, no nodules or ulcers. Neuro: No focal motor deficit. Normal speech. Psychiatry: Normal mood, no agitation. Diagnosis Bilateral pulmonary embolism with large clot burden Acute hypoxemic respiratory failure History of DVT and PE Plan: Status post full dose Lovenox. Pulmonary input appreciated. Lovenox transition to Xarelto DVT dosing. Echocardiogram is pending. Supportive measures with analgesics as needed. Blood pressure has been stable Discontinue IV fluid. Diet as tolerated. Evaluate for home oxygen on discharge. Advanced directive: full code.
[2024-08-08 23:02] LABS: Anion Gap 10.9 mEq/L (5.0-15.0); Magnesium 2.2 mg/dL (1.6-2.4); Potassium 3.9 mEq/L (3.5-5.1)
[2024-08-09 02:35] VITALS: BMI 31.2
[2024-08-09 04:39] LABS: Absolute Basophils 0.1 K/uL (0-0.5); Absolute Eosinophils 0.3 K/uL (0-0.5); Absolute Lymphocytes (CBC) 3.1 K/uL (0.7-4.9); Absolute Neutrophil 5.9 K/uL (1.8-8.0); Basophils % 0.7 % (0-1.3); Eosinophils % 2.7 % (0-4.4); Hematocrit 42.5 % (39.6-49.0); Hemoglobin 14.8 g/dL (13.6-17.9); Lymphocytes % 29.7 % (15.3-44.8); MCH 32.3 pg (27.0-35.0); MCHC 34.9 g/dL (32.0-36.0); MCV 92.7 fL (80-100); MPV 8.5 fL (7.6-11.3); Monocytes % 9.3 % (3.3-12.3); Neutrophils % 57.6 % (41.7-73.7); Nucleated Red Blood Cells % 0.1 % (0-0); Platelets 110 thou/uL (152-406); RBC Red Blood Cell Count 4.59 M/uL (4.33-5.43); Red Cell Distribution Width 13.8 % (12.1-15.2)
[2024-08-09 05:08] LABS: Anion Gap 7.8 mEq/L (5.0-15.0); Potassium 3.8 mEq/L (3.5-5.1)
[2024-08-09] MEDS: RIVAROXABAN 15 MG TABLET PO SCH (05:39)
[2024-08-09] MEDS: POTASSIUM CL SA 10 MEQ TAB PO ONE (08:50)
--- NOTE | 2024-08-09 14:13 | P.PN ---
Subjective Date of Service: 08/09/24 Chief Complaint: Shortness of breath Subjective: No new changes No complaints Review of Systems 10-point ROS is otherwise unremarkable Physical Examination - Vital Signs Temperature: 98.1 F Blood Pressure: 119/72 Pulse: 78 Respirations: 16 Pulse Ox (%): 95 - Physical Exam General: Alert, Oriented x3 HEENT: Atraumatic Neck: Supple Respiratory: Clear to auscultation bilaterally Cardiovascular: No edema Gastrointestinal: Normal bowel sounds Musculoskeletal: No clubbing, No swelling, No erythema Neurological: Normal gait, Normal speech, Normal strength at 5/5 x4 extr External genitalia: No edema, No lesions Assessment And Plan - Plan 1. Acute hypoxic respiratory failure secondary to bilateral PE -CTA of chest showed bilateral PE with large clot burden and possible right heart strain -Lower extremity Dopplers positive for bilateral chronic DVT -2D echo done, results pending -Patient currently on 2 L of oxygen, trying to wean off oxygen 2. On Xarelto for DVT prophylaxis Discharge Plan: Home Plan to discharge in: 24 Hours - Code Status/Comfort Care Code Status Assessed: Yes
[2024-08-09 15:28] LABS: Absolute Basophils 0.1 K/uL (0-0.5); Absolute Eosinophils 0.3 K/uL (0-0.5); Absolute Lymphocytes (CBC) 3.5 K/uL (0.7-4.9); Absolute Monocytes 0.9 K/uL (0.1-1.3); Absolute Neutrophil 5.4 K/uL (1.8-8.0); Basophils % 0.6 % (0-1.3); Eosinophils % 3.4 % (0-4.4); Hematocrit 43.9 % (39.6-49.0); Hemoglobin 15.2 g/dL (13.6-17.9); Lymphocytes % 34.2 % (15.3-44.8); MCH 32.3 pg (27.0-35.0); MCHC 34.6 g/dL (32.0-36.0); MCV 93.3 fL (80-100); MPV 8.6 fL (7.6-11.3); Monocytes % 8.5 % (3.3-12.3); Neutrophils % 53.3 % (41.7-73.7); Nucleated Red Blood Cells % 0.1 % (0-0); Platelets 128 thou/uL (152-406); RBC Red Blood Cell Count 4.71 M/uL (4.33-5.43); Red Cell Distribution Width 13.9 % (12.1-15.2)
[2024-08-09 15:39] LABS: Anion Gap 9.8 mEq/L (5.0-15.0); Magnesium 2.2 mg/dL (1.6-2.4); Potassium 3.8 mEq/L (3.5-5.1)
[2024-08-10 08:47] VITALS: O2SAT 94
--- NOTE | 2024-08-10 12:46 | P.DS ---
Admission Date: 08/07/24 Discharge Date: 08/10/24 Disposition: ROUTINE DISCHARGE Discharge Condition: GOOD Reason for Admission: Shortness of breath Brief History of Present Illness: Patient is a 69-year-old male with a past medical history of DVT and PE diagnosed in August 2023. He was treated in this hospital and was discharged with a 3-month course of Eliquis. After 3 months, patient stopped taking his Eliquis reportedly due to psychosomatic side effects. He cleared this with pulmonary, Dr. Coreas. He returns now in the hospital complaining of pleuritic chest pain associated with shortness of breath and productive cough. Patient denies fever or chills. His symptoms have been ongoing for the past few days. Workup in the ER included a CT angio of the chest which revealed pulmonary embolism. He has moderate to large clot burden and possible right heart strain. Patient is being admitted to the ICU for hemodynamic monitoring due to concern for submassive PE. Hospital Course: 69-year-old male with history of prior DVT and PE, diagnosed a year ago, was post to be on Eliquis which he had stopped due to perceived "psychiatric side effects", initially presented to emergency room for chest pain and shortness of breath. CTA of chest showed evidence of bilateral pulmonary embolism with large clot burden possible right heart strain. Bilateral lower extremity Dopplers also showed chronic bilateral DVTs. He was initiated on heparin drip, was in ICU for closer monitoring. Remained stable and was then transferred to the telemetry floor. Transitioned to Xarelto which he tolerated for 3 days in house. 2D echo showed evidence of LVEF of 65% with grade 2 diastolic dysfunction. Patient was initially hypoxic on admission, but was weaned off oxygen prior to discharge. Eventually discharged with prescription written for Xarelto for 60 days with 3 refills at time of discharge, he was afebrile, hemodynamically stable, ambulating independently. Patient educated in presence of regarding the importance of medication adherence especially in light of his recent history of large bilateral PE which predisposes him to significant respiratory failure if not taking his medications. Vital Signs/Physical Exam: Temp Pulse Resp BP Pulse Ox 97.8 F 78 16 130/69 94 08/10/24 08:00 08/10/24 08:00 08/10/24 08:00 08/10/24 08:00 08/10/24 08:00 General: Alert, Oriented x3 HEENT: Atraumatic, Normocephalic, PERRLA Neck: Supple Respiratory: Clear to auscultation bilaterally Cardiovascular: No edema Capillary refill: <2 Seconds Gastrointestinal: Normal bowel sounds Musculoskeletal: No clubbing, No swelling Integumentary: No rashes, No breakdown Neurological: Normal gait, Normal strength at 5/5 x4 extr Laboratory Data at Discharge: WBC 10.10 thou/uL (4.3-10.9) 08/09/24 15:12 Hgb 15.2 g/dL (13.6-17.9) 08/09/24 15:12 Hct 43.9 % (39.6-49.0) 08/09/24 15:12 Plt Count 128 thou/uL (152-406) L 08/09/24 15:12 PT 11.8 SECONDS (9.4-12.5) 08/07/24 20:56 INR 1.13 08/07/24 20:56 Sodium 137 mEq/L (136-145) 08/09/24 15:12 Potassium 3.8 mEq/L (3.5-5.1) 08/09/24 15:12 BUN 16 mg/dL (7-18) 08/09/24 15:12 Creatinine 1.28 mg/dL (0.70-1.30) 08/09/24 15:12 Glucose 134 mg/dL (74-106) H 08/09/24 15:12 Phosphorus 3.7 mg/dL (2.5-4.9) 08/08/24 05:30 Magnesium 2.2 mg/dL (1.6-2.4) 08/09/24 15:12 Total Bilirubin 1.3 mg/dL (0.2-1.0) H 08/07/24 20:56 AST 22 U/L (15-37) 08/07/24 20:56 ALT 44 U/L (16-61) 08/07/24 20:56 Alkaline Phosphatase 69 U/L (45-117) 08/07/24 20:56 Home Medications: Cetirizine HCl [Zyrtec] 10 mg PO DAILY 08/08/24 Rivaroxaban [Xarelto] 1 each PO DIRECTED 30 Days #1 08/10/24 New Medications: Rivaroxaban [Xarelto] 1 each PO DIRECTED 30 Days #1 Physician Discharge Instructions: Follow up with PCP within 1 week post discharge . take Xarelto as prescribed Diet: Regular Activity: Ad gem Followup: India Lamb MD [Primary Care Provider] -
[2024-08-10 13:23] VITALS: BP 110/65; TEMP 97.9
--- NOTE | 2024-08-12 07:30 | ECHO ---
HEIGHT: 5 ft 10 in WEIGHT: 218 lb 0 oz DATE OF STUDY: 08/08/[address]: Prince Beau Bass MD 2-DIMENSIONAL: YES M.MODE: YES DOPPLER: YES COLOR FLOW: YES TDS: YES PORTABLE: YES DEFINITY: NO BUBBLE STUDY: NO DIAGNOSIS: PULMONARY EMBOLISM WITH MODERATE TO LARGE CLOT BURDEN CARDIAC HISTORY: CATHERIZATION: NO SURGERY: NO PROSTHETIC VALVE: NO PACEMAKER: NO MEASUREMENTS (cm) DIASTOLIC (NORMALS) SYSTOLIC (NORMALS) IVSd 1.2 (0.6-1.2) LA Diam 2.6 (1.9-4.0) LVEF 62% LVIDd 3.3 (3.5-5.7) LVIDs 2.2 (2.0-3.5) %FS 32% LVPWd 1.2 (0.6-1.2) Ao Diam 3.1 (2.0-3.7) 2 DIMENSIONAL ASSESSMENT: RIGHT ATRIUM: NORMAL LEFT ATRIUM: NORMAL RIGHT VENTRICLE: NORMAL LEFT VENTRICLE: NORMAL TRICUSPID VALVE: TRACE TRICUSPID REGURGITATION MITRAL VALVE: NORMAL PULMONIC VALVE: NORMAL AORTIC VALVE: NORMAL PERICARDIAL EFFUSION: NONE AORTIC ROOT: NORMAL LEFT VENTRICULAR WALL MOTION: NORMAL. DOPPLER/COLOR FLOW: SEE BELOW. COMMENTS: 1. NORMAL LEFT VENTRICULAR EJECTION FRACTION 55-60% NORMAL WALL MOTION. 2. GRADE I DIASTOLIC DYSFUNCTION. 3. TRACE OF TRICUSPID REGURGITATION TECHNOLOGIST: LAURIE STEVENS
== END 2024-08-10 13:51 | disposition home or self-care (01) | DRG 175 ==
LOC: ER 20:21 → ERHOLD 23:46 → 2ND 08-08 11:26
PROVIDERS: ADMIT Internal Medicine; ATTEND Internal Medicine
DX: I26.99 Other pulmonary embolism without acute cor pulmonale (principal); J96.01 Acute respiratory failure with hypoxia; I82.511 Chronic embolism and thrombosis of right femoral vein; I82.531 Chronic embolism and thrombosis of right popliteal vein; I82.532 Chronic embolism and thrombosis of left popliteal vein; E66.9 Obesity, unspecified; Z94.7 Corneal transplant status; Z68.31 Body mass index [BMI] 31.0-31.9, adult; Z79.01 Long term (current) use of anticoagulants; Z91.148 Patient's other noncompliance with medication regimen for other reason; Z86.711 Personal history of pulmonary embolism; Z79.899 Other long term (current) drug therapy
CPT/HCPCS: 36415; 71045; 71275; 80048; 80076; 82947; 83605; 83735; 83880; 84100; 84439; 84443; 84484; 85025; 85610; 86140; 87804; 93005; 93306; 93970; 96372; 99285; J1650; J2470; J7030; Q9967